=== PATIENT | male | born 1990 | race African-American/Black ===

== ENCOUNTER 2016-09-05 00:09 | Emergency (ER) | payer OTHER ==
[~2016-09-05] VITALS: Ht 172.7 cm; Wt 108.9 kg
[~2016-09-05 00:09] MED LIST: APAP500 PO; IBUPROFEN 800800 MG PO
[2016-09-05 00:14] VITALS: BP 146/81
[2016-09-05] MEDS ORDERED: TRAMADOL 50 MG50 MG PO (00:17)
[2016-09-05] MEDS ORDERED: FLEXERIL PO (00:36)
[2016-09-05] MEDS ORDERED: MEDROLDOSEPACK PO (00:36)
[2016-09-05] MEDS ORDERED: MOBIC15 MG PO (00:36)
== END 2016-09-05 00:47 | disposition home or self-care (01) ==
LOC: ER 00:09
DX: M54.6 Pain in thoracic spine (principal)

== ENCOUNTER 2019-07-22 11:21 | Emergency (ER) | payer OTHER ==
[~2019-07-22] VITALS: Ht 175.3 cm; Wt 108.9 kg
[~2019-07-22 11:21] MED LIST changes: +FLEXERIL PO; +MEDROLDOSEPACK PO; +MOBIC15 MG PO; +TRAMADOL 50 MG50 MG PO
[2019-07-22 12:31] VITALS: BP 144/82
== END 2019-07-22 12:30 | disposition home or self-care (01) ==
LOC: ER 11:21
DX: L72.3 Sebaceous cyst (principal); Z79.899 Other long term (current) drug therapy

== ENCOUNTER 2020-10-20 15:45 | Emergency (ER) | payer OTHER ==
[~2020-10-20] VITALS: Ht 175.3 cm; Wt 117.9 kg
[2020-10-20 15:55] VITALS: BP 137/93
[2020-10-20 16:05] LABS: URINE BILIRUBIN NEGATIVE (Negative); URINE BLOOD NEGATIVE (Negative); URINE CLARITY CLEAR; URINE COLOR YELLOW; URINE GLUCOSE-RANDOM* NEGATIVE (Negative); URINE KETONES NEGATIVE (Negative); URINE LEUKOCYTES-REFLEX TRACE (Negative); URINE NITRITE-REFLEX NEGATIVE (Negative); URINE PROTEIN (DIPSTICK) TRACE (Negative); URINE SPECIFIC GRAVITY >= 1.030 (1.005-1.035); URINE UROBILINOGEN 0.2 E.U./dl (0.2-1.0)
== END 2020-10-20 16:46 | disposition home or self-care (01) ==
LOC: ER 15:45
PROVIDERS: Nurse Practitioner Family
DX: R36.9 Urethral discharge, unspecified (principal)

== ENCOUNTER 2020-11-22 19:52 | Emergency (ER) | payer OTHER ==
[~2020-11-22] VITALS: Ht 175.3 cm; Wt 113.4 kg
[2020-11-22 20:27] LABS: ABSOLUTE NEUTROPHILS 6.7 thou/uL (1.4-8.2); BASOPHILS 1.3 % (0.0-2.0); EOSINOPHILS 0.6 % (0.0-3.0); HEMATOCRIT 43.2 % (42.0-52.0); HEMOGLOBIN 14.7 gm/dL (14.0-18.0); LYMPHOCYTES 25.2 % (24.0-44.0); MCH 27.6 pg (26.0-34.0); MCV 81.3 fL (80.0-100.0); MONOCYTES 6.1 % (1.0-8.0); PLATELET COUNT 213 thou/uL (150-400); POLYS 66.8 % (36.0-66.0); RBC 5.31 mil/uL (4.50-6.00); RDW 14.9 % (10.5-14.5); WBC 10.1 thou/uL (4.0-11.0)
[2020-11-22 20:50] LABS: CALCIUM 9.1 mg/dL (8.5-10.1); CREATININE 1.1 mg/dL (0.7-1.3); POTASSIUM 3.8 mmol/L (3.5-5.1)
[2020-11-22 20:57] LABS: ALBUMIN 4.2 g/dL (3.4-5.0); TOTAL BILIRUBIN 0.4 mg/dL (0.2-1.0); TOTAL PROTEIN 8.5 g/dL (6.4-8.2)
[2020-11-22 22:01] LABS: URINE BILIRUBIN NEGATIVE (Negative); URINE BLOOD NEGATIVE (Negative); URINE CLARITY CLEAR; URINE COLOR YELLOW; URINE GLUCOSE-RANDOM* NEGATIVE (Negative); URINE KETONES NEGATIVE (Negative); URINE LEUKOCYTES-REFLEX NEGATIVE (Negative); URINE NITRITE-REFLEX NEGATIVE (Negative); URINE PROTEIN (DIPSTICK) NEGATIVE (Negative); URINE SPECIFIC GRAVITY 1.025 (1.005-1.035)
[2020-11-22 22:34] VITALS: BP 145/100
== END 2020-11-22 22:30 | disposition home or self-care (01) ==
LOC: ER 19:52
PROVIDERS: Nurse Practitioner Family
DX: R10.32 Left lower quadrant pain (principal); Z20.822 Contact with and (suspected) exposure to COVID-19; R11.2 Nausea with vomiting, unspecified

== ENCOUNTER 2021-02-26 15:48 | Emergency (ER) | payer OTHER ==
[~2021-02-26] VITALS: Ht 175.3 cm; Wt 117.9 kg
[2021-02-26 15:53] VITALS: BP 153/87
== END 2021-02-26 16:41 | disposition home or self-care (01) ==
LOC: ER 15:48
DX: R51.9 Headache, unspecified (principal); Z20.822 Contact with and (suspected) exposure to COVID-19

== ENCOUNTER 2021-03-12 11:26 | Emergency (ER) | payer OTHER ==
[~2021-03-12] VITALS: Ht 172.7 cm; Wt 117.9 kg
[2021-03-12 13:04] VITALS: BP 164/87
--- NOTE | 2021-03-13 07:30 | EKG ---
[place] [address] [address] [facility] [place] [address] ELECTROCARDIOGRAM REPORT Name: ANDRIA CRAIN Room #: DEP Baudilio#: [id number] Admission: 03/12/21 Attend Phys: Discharge: 03/12/21 Date of : [birth year] Report #: [id number] [facility] ED Test Date: 2021-03-12 Test Time: 11:50:23 Pat Name: ANDRIA CRAIN Department: Room: Gender: M [employer] D[employer]: UNKNOWN : 1990 Requested By: Gurjit Nelson Order Number: [id number] MD: Blake Ramirez Measurements Intervals [place] Rate: 103 P: 52 SC: 137 QRS: 9 QRSD: 85 T: 7 QT: 316 QTc: 414 Interpretive Statements Sinus tachycardia RSR' in V1 or V2, right VCD or RVH Compared to ECG 11/11/2015 00:24:15 Right ventricular hypertrophy now present RSR' in V1 or V2 now present Electronically Signed On 03-13-2021 7:30:11 CDT by Blake Ramirez [email or web address] <ELECTRONICALLY SIGNED> By: Blake Ramirez MD, [facility] 03/13/21 5030 1150 1150 Blake Ramirez MD, FACC /EPI
== END 2021-03-12 13:05 | disposition home or self-care (01) ==
LOC: ER 11:26
DX: U07.1 COVID-19 (principal)

== ENCOUNTER 2021-03-17 13:37 | Inpatient (IN) | payer OTHER ==
[~2021-03-17] VITALS: Ht 175.3 cm; Wt 118.8 kg
[2021-03-17 14:09] VITALS: BP 145/82
[2021-03-17 15:26] LABS: HEMATOCRIT 43.5 % (42.0-52.0); HEMOGLOBIN 14.6 gm/dL (14.0-18.0); MCH 26.9 pg (26.0-34.0); MCHC 33.6 g/dL (28.0-37.0); MCV 80.1 fL (80.0-100.0); RBC 5.42 mil/uL (4.50-6.00); RDW 15.2 % (10.5-14.5); WBC 3.9 thou/uL (4.0-11.0)
[2021-03-17 15:49] LABS: ALBUMIN 3.9 g/dL (3.4-5.0); ANION GAP 6 mmol/L (7-16); BUN 13 mg/dL (7-18); CALCIUM 8.2 mg/dL (8.5-10.1); CHLORIDE 104 mmol/L (98-107); CO2 32 mmol/L (21-32); CREATININE 1.3 mg/dL (0.7-1.3); GLUCOSE 118 mg/dL (74-106); POTASSIUM 4.1 mmol/L (3.5-5.1); SGOT 34 U/L (15-37); SGPT 29 U/L (16-63); SODIUM 142 mmol/L (136-145); TOTAL BILIRUBIN 0.3 mg/dL (0.2-1.0); TOTAL PROTEIN 7.8 g/dL (6.4-8.2); TROPONIN-I <0.06 ng/mL (<0.06)
--- NOTE | 2021-03-17 15:49 | NUR ---
PT STAYED AT 90% ON RA WHEN UP WALKING AROUND IN ROOM. PT ALSO NOTED THAT HE FELT DIZZY WHEN HE WAS UP WALKING. ED PROVIDER NOTIFIED. WILL PLACE PT ON 2L NC
--- NOTE | 2021-03-17 15:55 | EKG ---
[place] [address] [facility] [address] ELECTROCARDIOGRAM REPORT Name: ANDRIA CRAIN [id number] Admission: 03/17/21 Attend Phys: Discharge: Date of : [birth year] Report #: [id number] [facility] ED Test Date: 2021-03-17 Test Time: 14:47:47 Pat Name: ANDRIA CRAIN Department: Room: Gender: M [employer] Supervisor: WILLIE : 1990 Requested By: Chevy Paige Order Number: [id number] MD: Suleiman Arevalo Measurements Intervals [place] Rate: 108 P: 35 FL: 130 QRS: 6 QRSD: 82 T: 9 QT: 312 QTc: 418 Interpretive Statements Sinus tachycardia RSR' in V1 or V2, right VCD Compared to ECG 03/12/2021 11:50:23 No significant changes Electronically Signed On 03-17-2021 15:54:52 CDT by Suleiman Arevalo [email or web address] <ELECTRONICALLY SIGNED> By: Suleiman Arevalo MD, [facility] 03/17/21 1554 1447 1447 Suleiman Arevalo MD, [facility] /EPI
[2021-03-17 16:08] LABS: URINE BILIRUBIN NEGATIVE (Negative); URINE BLOOD NEGATIVE (Negative); URINE CLARITY CLEAR; URINE COLOR YELLOW; URINE GLUCOSE-RANDOM* NEGATIVE (Negative); URINE KETONES TRACE (Negative); URINE LEUKOCYTES-REFLEX NEGATIVE (Negative); URINE NITRITE-REFLEX NEGATIVE (Negative); URINE PROTEIN (DIPSTICK) TRACE (Negative); URINE SPECIFIC GRAVITY 1.015 (1.005-1.035); URINE UROBILINOGEN >= 8.0 E.U./dl (0.2-1.0)
[2021-03-17 17:28] VITALS: BP 149/84
[2021-03-17 18:24] VITALS: BP 115/60
--- NOTE | 2021-03-17 19:43 | NUR ---
PT ADIMITTED FROM ER AT 1820PM, PT IS A&OX4, RN HAS STARTED IV FLUID AND IV ABX, PT HAS MEDICATIONS FOR FEVER , PT HAS HIS DINNER AT BEDSIDE, RN HAS REPORTED TO NEXT SHIFT TO FINISH ADMITTED ORDER AND ASSESSMNET , PT IS ON O2 2L/MIN/NC, PT DENIES PIAN AND SOB AT DAY SHIFT.
[2021-03-17 20:08] VITALS: BP 118/78
--- NOTE | 2021-03-18 04:05 | NUR ---
Admission history and assessments completed. Careplan initiated. IVFluids started. Initial dose of Remdesivir, Steroids given. Low fall risks, gait steady. Calls out appropriatly for needs. Now afebrile. Rhythm stable. Oxygenation optimal with 2L/NC. Enhanced precautions.
[2021-03-18 04:44] VITALS: BP 108/63
[2021-03-18 06:04] LABS: HEMATOCRIT 42.6 % (42.0-52.0); HEMOGLOBIN 13.9 gm/dL (14.0-18.0); MCH 26.7 pg (26.0-34.0); MCHC 32.7 g/dL (28.0-37.0); MCV 81.7 fL (80.0-100.0); PLATELET COUNT 137 thou/uL (150-400); RBC 5.22 mil/uL (4.50-6.00); WBC 2.9 thou/uL (4.0-11.0)
[2021-03-18 06:34] LABS: ALBUMIN 3.1 g/dL (3.4-5.0); ANION GAP 11 mmol/L (7-16); BUN 13 mg/dL (7-18); CALCIUM 7.3 mg/dL (8.5-10.1); CHLORIDE 105 mmol/L (98-107); CO2 26 mmol/L (21-32); DIRECT BILIRUBIN < 0.1 mg/dL (<0.1-0.2); GLUCOSE 157 mg/dL (74-106); MAGNESIUM 2.2 mg/dL (1.8-2.4); POTASSIUM 4.5 mmol/L (3.5-5.1); SGOT 32 U/L (15-37); SGPT 27 U/L (30-65); SODIUM 142 mmol/L (136-145); TOTAL BILIRUBIN 0.2 mg/dL (0.2-1.0)
[2021-03-18 07:31] VITALS: BP 101/51
[2021-03-18 10:19] LABS: ABSOLUTE NEUTROPHILS 2.1 thou/uL (1.4-8.2)
[2021-03-18 10:42] VITALS: BP 109/66
--- NOTE | 2021-03-18 13:26 | NUR ---
INITIAL ASSESSMENT: Received consult. VANESSA reviewed chart and spoke with nursing and attending physician. Pt was admitted from home due to COVID pneumonia. Pt placed in Enhanced Isolation. Pt has not received a COVID vaccine. Pt is afebrile and on 2L of O2. Pt is on IV abx and IV steroids. Pt has been started on Remdesivir. VANESSA spoke with pt via phone. Introduced role of SW. Pt is alert/orientated x 4. Pt reports he lives at home. Prior to admission, pt was independent with ADLs. Pt states he is 100% connected with the [facility]. Pt does not have health insurance. VANESSA notified [facility] regarding connection with [facility]. Plan is for pt to discharge home when medically stable. VANESSA is following to assist as needed with discharge planning.
[2021-03-18 16:07] VITALS: BP 125/69
[2021-03-18 20:20] VITALS: BP 129/77
[2021-03-19 01:06] LABS: GLYCOHEMOGLOBIN (HGB A1C) 6.3 % (4.8-5.6)
--- NOTE | 2021-03-19 04:55 | NUR ---
Patient making progress towardsoutcome goals. Oxygenation optimal on room air. Vital signs and rhythm stable. Up adlib without difficulty. IVfluds infusing. No complaints of nausea, afebrile.
[2021-03-19 05:15] VITALS: BP 124/63
[2021-03-19 05:41] LABS: ALBUMIN 3.3 g/dL (3.4-5.0); ANION GAP 9 mmol/L (7-16); BUN 12 mg/dL (7-18); CALCIUM 7.7 mg/dL (8.5-10.1); CHLORIDE 107 mmol/L (98-107); CO2 29 mmol/L (21-32); DIRECT BILIRUBIN < 0.1 mg/dL (<0.1-0.2); GLUCOSE 156 mg/dL (74-106); POTASSIUM 4.4 mmol/L (3.5-5.1); SGOT 32 U/L (15-37); SGPT 31 U/L (30-65); SODIUM 145 mmol/L (136-145); TOTAL BILIRUBIN 0.2 mg/dL (0.2-1.0); TOTAL PROTEIN 6.7 g/dL (6.4-8.2)
--- NOTE | 2021-03-19 05:58 | HC ---
[facility] [place] [address] CONSULTATION Name: ANDRIA CRAIN Room #: 363-P ADM IN M.R.#: [id number] Admission: 03/17/21 Attend Phys: Arun Kennedy MD Discharge: Date of : [birth year] Report #: [id number] THIS REPORT FOR: cc: CABRERA - Amanda family physician/PCP CABRERA - No family physician/PCP Sha Arteaga MD ~ DATE OF SERVICE: 03/18/2021 INFECTIOUS DISEASE CONSULTATION DATE OF CONSULTATION: 03/18/2021 ATTENDING PHYSICIAN: Dr. Kennedy. REASON FOR EVALUATION: COVID-19 infection. HISTORY OF PRESENT ILLNESS: Chart reviewed, the patient examined. This is a 30-year-old gentleman without significant medical history who had a systemic illness including flu-like symptoms, fevers, generalized myalgias and arthralgias, subsequently developed cough, primarily nonproductive, and mild dyspnea. He had poor p.o. intake, some nausea, vomiting, diarrhea, onset roughly 10 days prior to admission. He had been diagnosed with COVID-19 on 03/12. We felt he was clinically worsening. Evaluation was undertaken. Initial chest x-ray was fairly unrevealing. D-dimer 3.3. CBC showed borderline leukopenia 3900, platelet count of 148. Lactic acid 1.3. Procalcitonin less than 0.05. Urinalysis unremarkable. Blood cultures collected at the time of admission are sterile thus far. He was initiated on azithromycin, remdesivir. Clinically, has improved subjectively fairly significantly. ALLERGIES: None known. CURRENT MEDICINES: Include zinc, cholecalciferol, ascorbic acid, thiamine, methylprednisolone, azithromycin, remdesivir. PAST MEDICAL HISTORY: Otherwise, unremarkable. SOCIAL HISTORY: Nonsmoker. No ethanol. No illicit drug use. FAMILY HISTORY: Noncontributory. REVIEW OF SYSTEMS: Otherwise, unremarkable with the exception of the above. PHYSICAL EXAMINATION: GENERAL: Alert, cooperative, in mild to moderate distress. He is lucid. VITAL SIGNS: Temperature 97.9, he had a T-max of 102.4; pulse 76; respirations 18; blood pressure 109/66. [facility] [address] [place] [address] CONSULTATION Name: ANDRIA CRAIN Room #: 363-P [facility]#: [id number] Admission: 03/17/21 Attend Phys: Arun Kennedy MD Discharge: Date of : [birth year] Report #: [id number] SKIN: Warm, dry, no rashes. HEENT: Normocephalic. Extraocular muscles intact. NECK: Supple. There is no nasal cannula requirement thus far. LUNGS: Few scattered crackles at the bases. HEART: Regular. I do not appreciate a murmur. ABDOMEN: Obese, mild distention, somewhat firm, nontender. EXTREMITIES: No cyanosis. GENITOURINARY AND RECTAL: Deferred. LABORATORY DATA: CBC from this morning, white count of 2.9, H and H of 13.9 and 42.6, platelets 137. Electrolytes: Sodium 142, potassium 4.5, chloride 105, bicarbonate 26, anion gap of 11, BUN and creatinine 13 and 1.0, glucose of 157. Albumin 3.1, total protein of 7.0. LFTs unremarkable. Urinalysis unremarkable. Procalcitonin less than 0.05. Lactic acid 1.3 on admission. ASSESSMENT: COVID-19 infection with more systemic manifestations, quite ill, although pulmonary symptoms are fairly ____ persistent cough. PLAN: We will continue current therapy with the corticosteroids and azithromycin, we will see how he does. He is on remdesivir, which we will continue that as well. He has dramatically improved from this standpoint from the time of admission. We noted he has hyperglycemia and all of this is indicative of the corticosteroids or perhaps he is prediabetic. We will add incentive spirometry ____ Hemoglobin A1c. We will monitor expectantly. <ELECTRONICALLY SIGNED> By: Sha Arteaga MD 03/19/21 0558 1102 2048 Sha Arteaga MD /nt
[2021-03-19 07:50] VITALS: BP 126/67
[2021-03-19 11:22] VITALS: BP 140/77
[2021-03-19] MEDS ORDERED: PREDNISONE 10 M10 M1 PO (14:04)
[2021-03-19] MEDS ORDERED: VENTOLIN HFA INH8 GM INH (14:04)
[2021-03-19 14:48] VITALS: BP 140/77
--- NOTE | 2021-03-19 15:38 | NUR ---
DISCHARGE NOTE: VANESSA reviewed chart and spoke with nursing and attending physician. Pt remains in Enhanced Isolation due to COVID. Pt is medically stable for discharge home today. Pt's new prescriptions were sent to [facility]. VANESSA faxed face sheet. Spoke with Mayuri in the pharmacy, who states that total cost of meds is $51.83. VANESSA spoke with pt via phone to discuss discharge plan. Pt is aware and in agreement with discharge plan. Pt states he will drive himself home. VANESSA updated pt's nurse. Pt's new prescriptions need to be picked up by 1800. No additional SW needs identified at this time, but is available to assist should needs arise.
--- NOTE | 2021-03-19 18:07 | NUR ---
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
== END 2021-03-19 16:52 | disposition home or self-care (01) | DRG 177 ==
LOC: ER 13:37 → 3W 17:51
PROVIDERS: Emergency Medicine; Nurse Practitioner; Specialist; ADMIT Hospitalist; ATTEND Hospitalist
PROC: XW033E5 Introduction of Remdesivir Anti-infective into Peripheral Vein, Percutaneous Approach, New Technology Group 5 (ICD-10-PCS; principal; 2021-03-18)
DX: U07.1 COVID-19 (principal); J12.82 Pneumonia due to coronavirus disease 2019; J96.01 Acute respiratory failure with hypoxia; R53.81 Other malaise; M25.50 Pain in unspecified joint; M79.10 Myalgia, unspecified site; R73.9 Hyperglycemia, unspecified; Z79.899 Other long term (current) drug therapy
CPT/HCPCS: 10879

== ENCOUNTER 2021-04-23 12:00 | Emergency (ER) | payer OTHER ==
[~2021-04-23] VITALS: Ht 175.3 cm; Wt 113.4 kg
[2021-04-23 12:00] VITALS: BP 152/89
[~2021-04-23 12:00] MED LIST changes: +PREDNISONE 10 M10 M1 PO; +VENTOLIN HFA INH8 GM INH
== END 2021-04-23 12:20 | disposition home or self-care (01) ==
LOC: ER 12:00
PROVIDERS: Emergency Medicine
DX: R05 Cough (principal); Z20.822 Contact with and (suspected) exposure to COVID-19; Z79.51 Long term (current) use of inhaled steroids; Z79.899 Other long term (current) drug therapy

== ENCOUNTER 2021-06-05 01:53 | Emergency (ER) | payer OTHER ==
[~2021-06-05] VITALS: Ht 175.3 cm; Wt 113.4 kg
[2021-06-05 01:58] VITALS: BP 136/90
[2021-06-05] MEDS ORDERED: ZOFRAN ODT4 MG PO (02:21)
== END 2021-06-05 02:30 | disposition home or self-care (01) ==
LOC: ER 01:53
PROVIDERS: Emergency Medicine
DX: R11.2 Nausea with vomiting, unspecified (principal); Z20.822 Contact with and (suspected) exposure to COVID-19